=== PATIENT | female | born 1980 | race Caucasian/White ===

== ENCOUNTER → 2016-09-22 | Outpatient (CLI) | payer MEDICARE ==
[~2016-09-22] MED LIST: ACID1TAB3 PO; ALPR-475 PO; ALPR1TAB2 PO; CARV3.1212 PO; FENT1PAT77 TD; HYDR-3138 PO; HYDR1TAB10 PO; LEVO750T6 PO; METHOTREXATE PO; OMEP-110 PO; OMEP40CA6 PO; OXYC-229 PO; OXYC-302 PO; OXYC-96 PO; PANT40TA3 PO; PRED5POW3 PO; PRED5TAB PO; PRED5TAB19 PO; PROM25TA10 PO; SULF1TAB24 PO; [UNRECOGNIZED DRUG - OTHER] PO; multi PO
== END | disposition home or self-care (01) ==
LOC: LAB 17:46
PROVIDERS: ATTEND Family Medicine
DX: N39.0 Urinary tract infection, site not specified (principal)
CPT/HCPCS: 81001; 87086

== ENCOUNTER 2017-10-03 10:00 | Outpatient (CLI) | payer MEDICARE ==
[~2017-10-03 10:00] MED LIST changes: -HYDR-3138 PO; +HYDR-3237 PO; -OXYC-229 PO; +OXYC-293 PO; +OXYC-307 PO; -OXYC-96 PO
[2018-02-12] MEDS ORDERED: METH500T7 PO (10:57)
[2018-02-12] MEDS ORDERED: ONDA4TAB10 PO (10:57)
== END 2018-10-03 11:40 | disposition home or self-care (01) ==
LOC: RAD 10:00
PROVIDERS: ATTEND Internal Medicine Hematology & Oncology
DX: K40.90 Unilateral inguinal hernia, without obstruction or gangrene, not specified as recurrent (principal); D50.9 Iron deficiency anemia, unspecified; Z90.49 Acquired absence of other specified parts of digestive tract
CPT/HCPCS: 76700; 76857

== ENCOUNTER → 2017-12-15 | Outpatient (CLI) | payer MEDICARE ==
[2017-12-15 15:58] LABS: MICROSCOPIC INDICATED
[2017-12-15 15:59] LABS: ALBUMIN 2.8 g/dL (3.4-5.0); ANION GAP 7 mmol/L (5-15); CALCIUM 9.7 mg/dL (8.5-10.1); CHLORIDE 102 mmol/L (98-107); CREATININE 1.94 mg/dL (0.55-1.02)
[2017-12-15 16:01] LABS: CULTURE INDICATED? ORDERED BY PHYSICIAN
== END ==
LOC: RAD 15:12
PROVIDERS: ATTEND Family Medicine
DX: R10.84 Generalized abdominal pain (principal); R30.0 Dysuria; E11.22 Type 2 diabetes mellitus with diabetic chronic kidney disease; N18.9 Chronic kidney disease, unspecified; Z90.49 Acquired absence of other specified parts of digestive tract
CPT/HCPCS: 36415; 74176; 80069; 81001; 87077; 87086; 87186

== ENCOUNTER → 2017-12-19 | Outpatient (CLI) | payer MEDICARE ==
[2017-12-19 12:59] LABS: BASOPHILS # (AUTO) 0.03 x10^3/uL (0-0.1); BASOPHILS % (AUTO) 1 % (0-1); CULTURE INDICATED? YES; EOSINOPHILS # (AUTO) 0.15 x10^3/uL (0-0.4); EOSINOPHILS % (AUTO) 2 % (1-7); LYMPHOCYTES % (AUTO) 14 % (22-44); MD NO; MEAN CORPUSCULAR HEMOGLOBIN 30.1 pg (27.0-34.8); MEAN CORPUSCULAR HGB CONC 33.5 g/dL (32.4-35.8); MEAN PLATELET VOLUME 7.6 fL (7.4-10.4); MICROSCOPIC INDICATED; MONOCYTES # (AUTO) 0.71 x10^3/uL (0.2-0.8); MONOCYTES % (AUTO) 11 % (2-9); NEUTROPHILS # (AUTO) 4.48 x10^3/uL (1.8-6.8); NEUTROPHILS % (AUTO) 71 % (42-75); PLATELET COUNT 208 x10^3/uL (130-400); RED BLOOD COUNT 4.37 x10^6/uL (3.82-5.3); RED CELL DISTRIBUTION WIDTH 14.2 % (9.6-15.2)
[2017-12-19 13:05] LABS: HCT (SEDRATE) 39.3 % (34.6-47.8)
[2017-12-19 13:08] LABS: ALBUMIN 2.5 g/dL (3.4-5.0); ANION GAP 8 mmol/L (5-15); CALCIUM 9.2 mg/dL (8.5-10.1); CHLORIDE 105 mmol/L (98-107)
[2017-12-19 13:17] LABS: ALANINE AMINOTRANSFERASE 37 U/L (12-78); ALKALINE PHOSPHATASE 105 U/L (45-117); BILIRUBIN,TOTAL 0.7 mg/dL (0.2-1.0); TOTAL PROTEIN 6.5 g/dL (6.4-8.2)
== END | disposition home or self-care (01) ==
LOC: CFH 11:16
PROVIDERS: ATTEND Family Medicine
DX: Z01.812 Encounter for preprocedural laboratory examination (principal); N18.9 Chronic kidney disease, unspecified; N10 Acute pyelonephritis
CPT/HCPCS: 36415; 76770; 80053; 81001; 84100; 85025; 85651; 86140; 87040; 87086

== ENCOUNTER → 2018-01-15 | Outpatient (CLI) | payer MEDICARE ==
[~2018-01-15] MED LIST changes: +CYSTO CONRAY II 250 ML VIAL UR ONE
== END | disposition home or self-care (01) ==
LOC: RAD 10:20
PROVIDERS: ATTEND Urology
DX: N39.0 Urinary tract infection, site not specified (principal); R30.0 Dysuria
CPT/HCPCS: 74455; Q9958

== ENCOUNTER → 2019-07-16 | Outpatient (CLI) | payer MEDICARE ==
[~2019-07-16] MED LIST changes: -ALPR-475 PO; +ALPR0.5T7 PO; -CYSTO CONRAY II 250 ML VIAL UR ONE; +GADOTERATE 7.5 MMOL/15 ML SYR ONE; +METH500T7 PO; +OMEP40CA42 PO; -OMEP40CA6 PO; +ONDA4TAB10 PO
== END | disposition home or self-care (01) ==
LOC: RAD 09:14
PROVIDERS: ATTEND Pain Medicine Interventional Pain Medicine
DX: M50.322 Other cervical disc degeneration at C5-C6 level (principal); M06.9 Rheumatoid arthritis, unspecified; J34.89 Other specified disorders of nose and nasal sinuses
CPT/HCPCS: 70553; 72156; A9575

== ENCOUNTER → 2019-07-17 | Outpatient (CLI) | payer MEDICARE | END | disposition home or self-care (01) | LOC: RAD 09:37 | PROVIDERS: ATTEND Pain Medicine Interventional Pain Medicine | DX: M06.9 Rheumatoid arthritis, unspecified (principal) | CPT/HCPCS: 72157; 72158; A9575 ==

== ENCOUNTER → 2019-11-15 | Outpatient (CLI) | payer MEDICARE ==
[~2019-11-15] MED LIST changes: -GADOTERATE 7.5 MMOL/15 ML SYR ONE; +OMNIPAQUE 350 MG/ML, 100ML BOTTLE ONE
== END | disposition home or self-care (01) ==
LOC: CFH 07:09
PROVIDERS: ATTEND Internal Medicine Gastroenterology
DX: K76.0 Fatty (change of) liver, not elsewhere classified (principal)
CPT/HCPCS: 74177; Q9967

== ENCOUNTER → 2020-01-23 | Outpatient (CLI) | payer MEDICARE ==
[~2020-01-23] MED LIST changes: -OMNIPAQUE 350 MG/ML, 100ML BOTTLE ONE
== END | disposition home or self-care (01) ==
LOC: RAD 06:34
PROVIDERS: ATTEND Internal Medicine Gastroenterology
DX: R63.4 Abnormal weight loss (principal)
CPT/HCPCS: 74240; 74248

== ENCOUNTER 2020-03-04 07:42 | Day surgery (SDC) | payer MEDICARE ==
[~2020-03-04] VITALS: Ht 175.3 cm; Wt 56.2 kg
[2020-03-04 08:22] VITALS: BP 99/66
[2020-03-04] MEDS ORDERED: SODIUM CHLORIDE 0.9% 1,000 ML IV SCH (08:30)
[2020-03-04] MEDS ORDERED: ESTRADIOL (08:43)
[2020-03-04] MEDS ORDERED: OXYCODONE PO (08:43)
[2020-03-04 08:57] LABS: BASOPHILS # (AUTO) 0.02 x10^3/uL (0-0.1); BASOPHILS % (AUTO) 1 % (0-1); EOSINOPHILS # (AUTO) 0.11 x10^3/uL (0-0.4); EOSINOPHILS % (AUTO) 3 % (1-7); LYMPHOCYTES # (AUTO) 1.38 x10^3/uL (1-3.4); LYMPHOCYTES % (AUTO) 39 % (22-44); MD NO; MEAN CORPUSCULAR HEMOGLOBIN 29.3 pg (27.0-34.8); MEAN CORPUSCULAR HGB CONC 32.2 g/dL (32.4-35.8); MEAN PLATELET VOLUME 7.5 fL (7.4-10.4); MONOCYTES # (AUTO) 0.34 x10^3/uL (0.2-0.8); MONOCYTES % (AUTO) 10 % (2-9); NEUTROPHILS # (AUTO) 1.72 x10^3/uL (1.8-6.8); NEUTROPHILS % (AUTO) 48 % (42-75); PLATELET COUNT 151 x10^3/uL (130-400); RED BLOOD COUNT 4.86 x10^6/uL (3.82-5.3); RED CELL DISTRIBUTION WIDTH 13.8 % (9.6-15.2)
[2020-03-04] MEDS ORDERED: FENTANYL PF 100 MCG/2ML ONE (10:00)
[2020-03-04] MEDS ORDERED: FLUMAZENIL 0.1 MG/1 ML, 5ML ONE (10:01)
[2020-03-04] MEDS ORDERED: NALOXONE 1 MG/ML, 2ML ONE (10:01)
[2020-03-04] MEDS ORDERED: MIDAZOLAM 1 MG/ML, 5ML ONE ×2 (10:01)
== END 2020-03-04 12:30 | disposition home or self-care (01) ==
LOC: OUT 07:42
PROVIDERS: ATTEND Internal Medicine Hematology & Oncology
DX: D50.9 Iron deficiency anemia, unspecified (principal); D47.2 Monoclonal gammopathy; M06.9 Rheumatoid arthritis, unspecified; R06.89 Other abnormalities of breathing; R63.4 Abnormal weight loss; Z79.891 Long term (current) use of opiate analgesic; Z79.899 Other long term (current) drug therapy; Z88.5 Allergy status to narcotic agent; Z88.8 Allergy status to other drugs, medicaments and biological substances; Z99.81 Dependence on supplemental oxygen
CPT/HCPCS: 36415; 38222; 77012; 85025; 85060; 85097; 88237; 88264; 88280; 88305; 88311; 88313; 99156; 99157; J2250; J3010; J7030; J2310

== ENCOUNTER 2020-03-26 07:10 | Day surgery (SDC) | payer MEDICARE ==
[~2020-03-26] VITALS: Ht 175.3 cm; Wt 54.0 kg
[~2020-03-26 07:10] MED LIST changes: +ESTRADIOL; +OXYCODONE PO
[2020-03-26 07:55] VITALS: BP 97/62
[2020-03-26] MEDS ORDERED: SODIUM CHLORIDE 0.9% 1,000 ML IV SCH (08:00)
[2020-03-26] MEDS ORDERED: VANCOMYCIN PMX 1GM/200ML 200 ML IV STA (08:07)
[2020-03-26] MEDS ORDERED: LIDOCAINE 1%, 20ML ONE (08:27)
[2020-03-26] MEDS ORDERED: LIDOCAINE GEL 2%, 5ML ONE (08:31)
== END 2020-03-26 10:15 | disposition home or self-care (01) ==
LOC: OUT 07:10
PROVIDERS: ATTEND Internal Medicine Gastroenterology
DX: R63.4 Abnormal weight loss (principal); M06.9 Rheumatoid arthritis, unspecified; F41.9 Anxiety disorder, unspecified; F32.9 Major depressive disorder, single episode, unspecified; K21.9 Gastro-esophageal reflux disease without esophagitis; Z88.5 Allergy status to narcotic agent; Z88.1 Allergy status to other antibiotic agents; Z88.8 Allergy status to other drugs, medicaments and biological substances; Z90.49 Acquired absence of other specified parts of digestive tract; Z98.890 Other specified postprocedural states; Z79.899 Other long term (current) drug therapy; Z87.891 Personal history of nicotine dependence; Z90.710 Acquired absence of both cervix and uterus
CPT/HCPCS: 43752; J3370; J7030; 74340

== ENCOUNTER → 2020-04-02 | Outpatient (CLI) | payer MEDICARE | END | disposition home or self-care (01) | LOC: STAR 11:01 | PROVIDERS: ATTEND Anesthesiology | DX: Z01.812 Encounter for preprocedural laboratory examination (principal); Z20.828 Contact with and (suspected) exposure to other viral communicable diseases | CPT/HCPCS: 36415; 87635 ==

== ENCOUNTER 2020-04-06 10:43 | Observation (INO) | payer MEDICARE ==
[~2020-04-06] VITALS: Ht 172.7 cm; Wt 57.4 kg
[2020-04-06] MEDS ORDERED: PROPOFOL 50 ML ONE (11:40)
[2020-04-06 11:43] VITALS: BP 111/76
[2020-04-06] MEDS ORDERED: DOXYCYCLINE IV (11:51)
[2020-04-06] MEDS ORDERED: FENTANYL PF 100 MCG/2ML ONE ×2 (11:52→13:14)
[2020-04-06] MEDS ORDERED: MIDAZOLAM 1 MG/ML, 2ML ONE (11:52)
[2020-04-06] MEDS ORDERED: CHLORHEXIDINE 15 ML UDC ONE (12:01)
[2020-04-06] MEDS ORDERED: CEFAZOLIN 1,000 MG ONE (12:29)
[2020-04-06] MEDS ORDERED: PROPOFOL 10 MG/ML, 20ML ONE (12:29)
[2020-04-06] MEDS ORDERED: CHLORHEXIDINE 15 ML UDC MM ONE (13:01)
[2020-04-06] MEDS ORDERED: HYDROmorphone 2 MG/ML, 1ML ONE ×2 (13:14→13:58)
[2020-04-06] MEDS: FENTANYL PF 100 MCG/2ML IV PRN ×3 (13:19→13:36)
[2020-04-06] MEDS ORDERED: KETOROLAC 30 MG/1 ML IVPush PRN (13:30)
[2020-04-06] MEDS ORDERED: LACTATED RINGERS 1,000 ML IV SCH (13:30)
[2020-04-06] MEDS ORDERED: OXYcodone 5 MG/5 ML ORAL.SOL UDC PO PRN (13:30)
[2020-04-06] MEDS ORDERED: ONDANSETRON 2MG/ML, 2ML IVPush PRN ×2 (13:30→16:30)
[2020-04-06] MEDS ORDERED: DIPHENHYDRAMINE 50 MG/ML, 1ML IVPush PRN (13:30)
[2020-04-06] MEDS ORDERED: ACETAMINOPHEN 325 MG TABLET PO PRN (13:30)
[2020-04-06] MEDS: HYDROmorphone 1 MG/ML, 1ML INJ IVPush PRN ×6 (13:48→14:26)
[2020-04-06] MEDS ORDERED: PROMETHAZINE 25 MG/ML, 1ML ONE (13:58)
[2020-04-06] MEDS: PROMETHAZINE 25 MG/ML, 1ML IV PRN ×2 (14:03→14:27)
[2020-04-06 14:50] VITALS: BP 100/58
[2020-04-06] MEDS ORDERED: PROMETHAZINE 25MG TABLET PO PRN (16:00)
[2020-04-06] MEDS ORDERED: MORPHINE SULFATE 4 MG/ML, 1ML IVPush PRN (16:30)
[2020-04-06] MEDS ORDERED: BISACODYL 10 MG SUPP PR PRN (16:30)
[2020-04-06] MEDS ORDERED: FENTANYL 50 MCG PATCH TD SCH (16:30)
[2020-04-06] MEDS ORDERED: FENTANYL 75 MCG PATCH TD SCH (16:30)
[2020-04-06] MEDS ORDERED: POLYETHYLENE GLYCOL 17 GM PACKET PO PRN (16:30)
[2020-04-06] MEDS ORDERED: OXYcodone IR 5MG TABLET PO PRN (16:30)
[2020-04-06] MEDS: OXYcodone IR 5MG TABLET PO PRN (16:42)
[2020-04-06] MEDS: ONDANSETRON ODT 4 MG PO SCH ×2 (16:43→21:30)
[2020-04-06] MEDS: DOXYCYCLINE 100 MG in DEXTROSE 5% 250 ML IV SCH (17:16)
[2020-04-06] MEDS: LACTATED RINGERS 1,000 ML IV SCH (17:17)
[2020-04-06] MEDS: PROMETHAZINE 25 MG/ML, 1ML IM PRN ×2 (18:17→21:41)
[2020-04-06 19:32] VITALS: BP 117/77
[2020-04-07 00:17] LABS: MICROSCOPIC NOT IND
[2020-04-07] MEDS: PROMETHAZINE 25 MG/ML, 1ML IM PRN ×3 (00:44→08:30)
[2020-04-07 00:45] VITALS: BP 110/78
[2020-04-07] MEDS ORDERED: DIPHENHYDRAMINE 50 MG/ML, 1ML IVPush PRN (01:30)
[2020-04-07 04:00] VITALS: BP 119/78
[2020-04-07] MEDS ORDERED: LORazepam 2 MG/ML, 1ML IVPush ONE (04:30)
[2020-04-07] MEDS: DOXYCYCLINE 100 MG in DEXTROSE 5% 250 ML IV SCH (05:00)
[2020-04-07] MEDS: ONDANSETRON ODT 4 MG PO SCH ×2 (06:00→10:11)
[2020-04-07] MEDS: LACTATED RINGERS 1,000 ML IV SCH (06:17)
[2020-04-07 06:20] LABS: BASOPHILS % (AUTO) 0 % (0-1); EOSINOPHILS % (AUTO) 1 % (1-7); LYMPHOCYTES % (AUTO) 7 % (22-44); MEAN CORPUSCULAR HEMOGLOBIN 30.2 pg (27.0-34.8); MEAN CORPUSCULAR HGB CONC 32.6 g/dL (32.4-35.8); MEAN PLATELET VOLUME 7.5 fL (7.4-10.4); MONOCYTES % (AUTO) 5 % (2-9); NEUTROPHILS % (AUTO) 87 % (42-75); PLATELET COUNT 150 x10^3/uL (130-400); RED BLOOD COUNT 4.62 x10^6/uL (3.82-5.3); RED CELL DISTRIBUTION WIDTH 13.5 % (9.6-15.2)
[2020-04-07 06:33] LABS: MD NO
[2020-04-07 06:34] LABS: ANION GAP 7 mmol/L (5-15); CALCIUM 9.3 mg/dL (8.5-10.1); CHLORIDE 107 mmol/L (98-107); CREATININE 0.98 mg/dL (0.55-1.02)
[2020-04-07 07:47] VITALS: BP 100/64
[2020-04-07] MEDS ORDERED: SENNA/DOCUSATE TABLET PO SCH (09:00)
[2020-04-07] MEDS: OXYcodone IR 5MG TABLET PO PRN (09:04)
[2020-04-07 09:36] LABS: TOTAL IRON BINDING CAPACITY 207 mcg/dL (250-450)
[2020-04-07 09:40] LABS: % IRON SATURATION 10 % (20-55); IRON LEVEL 20 mcg/dL (50-170)
[2020-04-07] MEDS ORDERED: IRON SUCROSE COMPLEX 100MG/5ML IV ONE (10:00)
[2020-04-07] MEDS ORDERED: METOCLOPRAMIDE 10MG TABLET PO SCH (11:00)
[2020-04-07] MEDS ORDERED: FERR324T18 PO (11:31)
[2020-04-07] MEDS ORDERED: METO10TA2 PO (11:38)
[2020-04-07 12:05] VITALS: BP 109/74
[2020-04-07] MEDS ORDERED: FLU VACC QS2020-21(6MOS UP)/PF 60MCG/0.5 ML SYR IM-VACC ONE (13:00)
[2020-04-09] MEDS ORDERED: FENTANYL REMOVE PATCH NOTE XX SCH (18:00)
== END 2020-04-07 14:00 | disposition home or self-care (01) ==
LOC: OUT 10:43 → ORIP 13:23 → 3WST 14:57 → DCLOUNGE 04-07 13:51
PROVIDERS: ADMIT Internal Medicine Gastroenterology; ATTEND Internal Medicine Gastroenterology
DX: K29.00 Acute gastritis without bleeding (principal); K29.80 Duodenitis without bleeding; K59.09 Other constipation; E03.9 Hypothyroidism, unspecified; M06.9 Rheumatoid arthritis, unspecified; I42.9 Cardiomyopathy, unspecified; K31.84 Gastroparesis; N12 Tubulo-interstitial nephritis, not specified as acute or chronic; G89.4 Chronic pain syndrome; R63.4 Abnormal weight loss; F11.20 Opioid dependence, uncomplicated; F41.9 Anxiety disorder, unspecified; Z90.710 Acquired absence of both cervix and uterus; Z79.899 Other long term (current) drug therapy; Z23 Encounter for immunization
CPT/HCPCS: 36415; 43239; 43246; 80048; 81003; 83540; 83550; 83735; 84100; 85025; 88305; 90686; 96361; 96365; 96366; 96372; 96375; B4087; G0008; G0378; J0690; J1170; J1200; J1756; J2060; J2250; J2270; J2405; J2550; J2704; J3010; J7060; J7120; Q0162

== ENCOUNTER 2020-07-02 07:41 | Day surgery (SDC) | payer MEDICARE ==
[~2020-07-02] VITALS: Ht 175.3 cm; Wt 57.8 kg
[~2020-07-02 07:41] MED LIST changes: +DOXYCYCLINE IV; +FERR324T18 PO; +METH-639 PO; -METH500T7 PO; +METO10TA2 PO; -OXYC-302 PO; -OXYC-307 PO; +OXYC-380 PO; +OXYC1TAB14 PO
[2020-07-02 08:24] VITALS: BP 120/73
[2020-07-02] MEDS ORDERED: LACTATED RINGERS 1,000 ML IV SCH (08:30)
[2020-07-02] MEDS ORDERED: CHLORHEXIDINE 15 ML UDC MM ONE (08:30)
[2020-07-02] MEDS ORDERED: PROPOFOL 50 ML ONE (09:30)
[2020-07-02] MEDS ORDERED: FENTANYL PF 100 MCG/2ML IV PRN (10:30)
[2020-07-02] MEDS ORDERED: EPHEDRINE 50 MG/ML, 1ML IVPush PRN (10:30)
[2020-07-02] MEDS ORDERED: DIAZEPAM 5 MG/ML, 2ML IVPush PRN (10:30)
[2020-07-02] MEDS ORDERED: EPHEDRINE 50 MG/ML, 1ML IM PRN (10:30)
[2020-07-02] MEDS ORDERED: ACETAMINOPHEN 325 MG TABLET PO PRN (10:30)
[2020-07-02] MEDS ORDERED: ONDANSETRON 2MG/ML, 2ML IVPush PRN (10:30)
[2020-07-02] MEDS ORDERED: DIPHENHYDRAMINE 50 MG/ML, 1ML IVPush PRN (10:30)
[2020-07-02] MEDS ORDERED: ONDANSETRON 2MG/ML, 2ML ONE (10:34)
[2020-07-02] MEDS ORDERED: PROMETHAZINE 25 MG/ML, 1ML ONE (10:49)
[2020-07-02] MEDS ORDERED: PROMETHAZINE 25 MG/ML, 1ML IVPush PRN (11:00)
[2020-07-02] MEDS ORDERED: METOCLOPRAMIDE 5 MG/ML, 2ML ONE (11:16)
[2020-07-02] MEDS ORDERED: METOCLOPRAMIDE 5 MG/ML, 2ML IVPush PRN (11:30)
== END 2020-07-02 12:50 | disposition home or self-care (01) ==
LOC: OUT 07:41
PROVIDERS: ATTEND Internal Medicine Gastroenterology
DX: K31.84 Gastroparesis (principal); K29.80 Duodenitis without bleeding; K31.89 Other diseases of stomach and duodenum; K21.9 Gastro-esophageal reflux disease without esophagitis; F41.9 Anxiety disorder, unspecified; N18.9 Chronic kidney disease, unspecified; M06.9 Rheumatoid arthritis, unspecified; Z90.710 Acquired absence of both cervix and uterus; Z98.890 Other specified postprocedural states; Z90.49 Acquired absence of other specified parts of digestive tract; Z88.5 Allergy status to narcotic agent; Z88.8 Allergy status to other drugs, medicaments and biological substances; Z20.828 Contact with and (suspected) exposure to other viral communicable diseases; Z79.899 Other long term (current) drug therapy
CPT/HCPCS: 44373; 74018; 88305; B4087; J2405; J2550; J2704; U0003